=== PATIENT | female | born 1955 | race Caucasian/White ===

== ENCOUNTER 2016-11-14 16:34 | Observation (INO) | payer OTHER ==
[~2016-11-14] VITALS: Ht 152.4 cm; Wt 66.0 kg
[2016-11-14 16:35] VITALS: BP 186/85; PULSE 88; RESP 20; TEMP 97.7; O2SAT 96
--- NOTE | 2016-11-14 16:54 | PD ---
HPI Chief Complaint: Laceration/Skin Injury Time Seen by Provider: 16:53 Travel History International Travel<30 days: No Contact w/Intl Traveler<30days: No Traveled to known affect area: No History of Present Illness HPI 61-year-old female presents to the emergency department after 2 large pots fell from approximately 3 feet and hit her in the head. She is a [employer] employee and was at work at the time. Denies loss of consciousness. Reports headache, lightheadedness, dizziness. Reports blurred vision. Denies neck pain. Denies anticoagulants. Denies vomiting. Denies focal deficits or weakness. No change in gait. Denies confusion, disorientation, change in mentation, slurred speech. Has not taken any medications or tried any treatments to alleviate her symptoms. She does have a laceration to the midline frontal scalp which pressure has been applied and bleeding is controlled. Thinks her tetanus was updated about 7 years ago. No known allergies. No other medical complaints. No other modified factors or associated signs and symptoms. [facility] Social History Tobacco Use: No Allergies-Medications (Allergen,Severity, Reaction): Coded Allergies: No Known Allergies (Unverified , 11/14/16) Reported Meds & Prescriptions Reported Meds & Active Scripts Active Active Prescriptions or Reported Medications Unobtainable Review of Systems Except as stated in HPI: all other systems reviewed are Neg Physical Exam Narrative GENERAL: Well-nourished, well-developed female patient, in no acute distress SKIN: Warm and dry. Laceration noted to midfrontal scalp. Swelling noted to left forehead just above the left eye. HEAD: Atraumatic. Normocephalic. Facial droop noted. Tongue midline. EYES: Pupils equal and round at 3 mm with brisk reaction. No scleral icterus. No injection or drainage. PERRLA. EOMI. Left upper orbit with tenderness on palpation. No raccoon eyes. ENT: Mucosa pink and moist. Airway patent. EARS: Bilateral pinnae and external canals appear within normal limits. Bilateral tympanic membranes without hemotympanum, erythema, dullness or perforation. NECK: Trachea midline. No lymphadenopathy. CARDIOVASCULAR: Regular rate and rhythm. No murmur appreciated. RESPIRATORY: No accessory muscle use. Clear to auscultation. Breath sounds equal bilaterally. GASTROINTESTINAL: Abdomen soft, non-tender, nondistended. Hepatic and splenic margins not palpable. Bowel sounds are active 4 quadrants. MUSCULOSKELETAL: No obvious deformities. No clubbing. No cyanosis. No edema. NEUROLOGICAL: Awake and alert. Oriented 3. No obvious cranial nerve deficits. Motor grossly within normal limits. Normal speech. Moves all extremities. 5/5 strength to all extremities. PSYCHIATRIC: Appropriate mood and affect; insight and judgment normal. Data Data Last Documented VS Vital Signs Date Time Temp Pulse Resp B/P Pulse Ox O2 Delivery O2 Flow Rate FiO2 11/14/16 18:33 16 99 Room Air 11/14/16 18:26 68 132/66 11/14/16 16:[address] Facial Bones W/O Iv Cont (11/14/16 ) Ct Brain W/O Iv Contrast(Rout) (11/14/16 ) Tetanus/Diphtheria Tox Adult (Tetanus/Di (11/14/16 17:00) Morphine Inj (Morphine Inj) (11/14/16 17:00) Ondansetron Odt (Zofran Odt) (11/14/16 17:00) Lidocai-Epi 1%-1:100,000 Inj (Xylocaine- (11/14/16 17:45) Ct Cerv Spine W/O Contrast (11/14/16 ) Complete Blood Count With Diff (11/14/16 18:29) Basic Metabolic Panel (Bmp) (11/14/16 18:29) Iv Access Insert/Monitor (11/14/16 18:29) Blood Glucose (11/14/16 18:29) Ecg Monitoring (11/14/16 18:29) Oximetry (11/14/16 18:29) Sodium Chloride 0.9% Flush (Ns Flush) (11/14/16 18:30) Admit Order (Ed Use Only) (11/14/16 18:39) Labs Laboratory Tests Test 11/14/16 18:38 White Blood Count 7.6 TH/MM3 Red Blood Count 4.64 MIL/MM3 Hemoglobin 12.6 GM/DL Hematocrit 39.1 % Mean Corpuscular Volume 84.4 FL Mean Corpuscular Hemoglobin 27.1 PG Mean Corpuscular Hemoglobin 32.2 % Concent Red Cell Distribution Width 13.5 % Platelet Count 221 TH/MM3 Mean Platelet Volume 9.1 FL Neutrophils (%) (Auto) 58.4 % Lymphocytes (%) (Auto) 31.4 % Monocytes (%) (Auto) 5.1 % Eosinophils (%) (Auto) 3.9 % Basophils (%) (Auto) 1.2 % Neutrophils # (Auto) 4.4 TH/MM3 Lymphocytes # (Auto) 2.4 TH/MM3 Monocytes # (Auto) 0.4 TH/MM3 Eosinophils # (Auto) 0.3 TH/MM3 Basophils # (Auto) 0.1 TH/MM3 CBC Comment DIFF FINAL Differential Comment Sodium Level 140 MEQ/L Potassium Level 3.9 MEQ/L Chloride Level 104 MEQ/L Carbon Dioxide Level 28.6 MEQ/L Anion Gap 7 MEQ/L Blood Urea Nitrogen 17 MG/DL Creatinine 0.66 MG/DL Estimat Glomerular Filtration 91 ML/MIN Rate Random Glucose 86 MG/DL Calcium Level 9.1 MG/DL MDM Medical Decision Making Medical Screen Exam Complete: Yes Emergency Medical Condition: Yes Medical Record Reviewed: Yes Differential Diagnosis Head injury, facial contusion, scalp laceration Narrative Course 61-year-old female presents after 2 large pots fell from approximately 3 feet and hit the patient in the head twice. She is a [employer] employee and the injury occurred while at work. She has a laceration to the frontal mid scalp. Patient is complaining of dizziness, lightheadedness, headache, blurred vision. Neuro exam is unremarkable. PERRLA and EOMI. Alert and oriented without slurred speech. CT head and CT facial bones ordered. Tetanus updated in the ER. Dr. Jiménez, my attending physician, ordered morphine. Zofran ordered. 180: Patient is continuing to feel lightheaded, dizzy and just "doesn't feel right." She is diaphoretic. She became very dizzy on transfer from wheelchair to bed after CT scan. Patient will be moved to medical bed, placed on a cardiopulmonary monitor and monitored more closely. Report given to YULISSA Maguire. See her note for final disposition and laceration repair. Scripts Unable to Obtain Active Prescriptions or Reported Meds Ana Inman Nov 14, 2016 16:54
[2016-11-14] MEDS ORDERED: ONDANSETRON ODT 4 MG TAB PO ONE (17:00)
[2016-11-14] MEDS ORDERED: MORPHINE SULFATE 8 MG/ML INJ IM ONE (17:00)
[2016-11-14] MEDS ORDERED: TETANUS/DIPHTHERIA TOXOID ADULT 0.5 ML VIAL IM ONE (17:00)
[2016-11-14] MEDS ORDERED: LIDOCAINE 1%/EPINEPHrine 1:100,000 SOLN 20 ML VIAL INFIL ONE (17:45)
--- NOTE | 2016-11-14 17:55 | RADRPT ---
EXAM DATE/TIME: 11/14/2016 17:43 [facility] COMPARISON: No previous studies available for comparison. INDICATIONS : Fell three feet and hit head. RADIATION DOSE: 31.74 CTDIvol (mGy) MEDICAL HISTORY : Hypertension. SURGICAL HISTORY : None. ENCOUNTER: Initial ACUITY: 1 day PAIN SCALE: 10/10 LOCATION: cranial TECHNIQUE: Multiple contiguous axial images were obtained of the head. Using automated exposure control and adj ustment of the mA and/or kV according to patient size, radiation dose was kept as low as reasonably a chievable to obtain optimal diagnostic quality images. FINDINGS: CEREBRUM: The ventricles are normal for age. No evidence of midline shift, mass lesion, hemorrhage or acute in farction. No extra-axial fluid collections are seen. POSTERIOR FOSSA: The cerebellum and brainstem are intact. The 4th ventricle is midline. The cerebellopontine angle i s unremarkable. EXTRACRANIAL: The visualized portion of the orbits is intact. SKULL: The calvaria is intact. No evidence of skull fracture. CONCLUSION: 1. No evidence of acute intracranial pathology. No masses are identified. Lupillo Soto MD on November 14, 2016 at 17:53 Board Certified Radiologist. This report was verified electronically.
--- NOTE | 2016-11-14 18:12 | RADRPT ---
EXAM DATE/TIME: 11/14/2016 17:43 [facility] COMPARISON: No previous studies available for comparison. INDICATIONS : Fell three feet and hit head. RADIATION DOSE: 51.12 CTDIvol (mGy) MEDICAL HISTORY : Hypertension. SURGICAL HISTORY : None. ENCOUNTER: Initial ACUITY: 1 day PAIN SCORE: 10/10 LOCATION: facial TECHNIQUE: Volumetric scanning of the facial bones was performed. Using automated exposure control and adjustme nt of the mA and/or kV according to patient size, radiation dose was kept as low as reasonably achiev able to obtain optimal diagnostic quality images. FINDINGS: No definite fractures, dislocations, lytic, or sclerotic lesions are seen. There is slight scalp swel ling in the left frontal lobe and mild mucoperiosteal thickening of the left eithmoid air cells. CONCLUSION: No definite fracture is seen for techniqueoYgesh Bansal MD on November 14, 2016 at 18:07 Board Certified Radiologist. This report was verified electronically.
[2016-11-14 18:26] VITALS: BP 132/66; PULSE 68; RESP 16; O2SAT 99
[2016-11-14] MEDS ORDERED: SODIUM CHLORIDE 0.9% FLUSH 10 ML FLUSH IVF PRN (18:30)
[2016-11-14 18:33] VITALS: RESP 16; O2SAT 99
[2016-11-14] MEDS ORDERED: ACETAMINOPHEN 325 MG TAB PO PRN ×2 (19:00→23:15)
[2016-11-14] MEDS ORDERED: SODIUM CHLORIDE 0.9% FLUSH 10 ML FLUSH IV FLUSH PRN (19:00)
[2016-11-14] MEDS ORDERED: NALOXONE HCL 0.4 MG/ML AMP IV PRN (19:00)
[2016-11-14] MEDS ORDERED: ONDANSETRON HCL 4 MG/2 ML VIAL IVP PRN (19:00)
--- NOTE | 2016-11-14 19:05 | PD ---
Physical Exam Date Seen by Provider: Nov 14, 2016 Time Seen by Provider: 18:20 Narrative For full history and physical examination please see previous provider's note. I assumed care of this patient when she was transferred to a medical bed. Patient sustained a head injury while at work, she has been diaphoretic, dizzy with a dull headache. Data Data Last Documented VS Vital Signs Date Time Temp Pulse Resp B/P Pulse Ox O2 Delivery O2 Flow Rate FiO2 11/14/16 18:33 16 99 Room Air 11/14/16 18:26 68 132/66 11/14/16 16:[address] Facial Bones W/O Iv Cont (11/14/16 ) Ct Brain W/O Iv Contrast(Rout) (11/14/16 ) Tetanus/Diphtheria Tox Adult (Tetanus/Di (11/14/16 17:00) Morphine Inj (Morphine Inj) (11/14/16 17:00) Ondansetron Odt (Zofran Odt) (11/14/16 17:00) Lidocai-Epi 1%-1:100,000 Inj (Xylocaine- (11/14/16 17:45) Ct Cerv Spine W/O Contrast (11/14/16 ) Complete Blood Count With Diff (11/14/16 18:29) Basic Metabolic Panel (Bmp) (11/14/16 18:29) Iv Access Insert/Monitor (11/14/16 18:29) Blood Glucose (11/14/16 18:29) Ecg Monitoring (11/14/16 18:29) Oximetry (11/14/16 18:29) Sodium Chloride 0.9% Flush (Ns Flush) (11/14/16 18:30) Admit Order (Ed Use Only) (11/14/16 18:39) Labs Laboratory Tests Test 11/14/16 18:38 White Blood Count 7.6 TH/MM3 Red Blood Count 4.64 MIL/MM3 Hemoglobin 12.6 GM/DL Hematocrit 39.1 % Mean Corpuscular Volume 84.4 FL Mean Corpuscular Hemoglobin 27.1 PG Mean Corpuscular Hemoglobin 32.2 % Concent Red Cell Distribution Width 13.5 % Platelet Count 221 TH/MM3 Mean Platelet Volume 9.1 FL Neutrophils (%) (Auto) 58.4 % Lymphocytes (%) (Auto) 31.4 % Monocytes (%) (Auto) 5.1 % Eosinophils (%) (Auto) 3.9 % Basophils (%) (Auto) 1.2 % Neutrophils # (Auto) 4.4 TH/MM3 Lymphocytes # (Auto) 2.4 TH/MM3 Monocytes # (Auto) 0.4 TH/MM3 Eosinophils # (Auto) 0.3 TH/MM3 Basophils # (Auto) 0.1 TH/MM3 CBC Comment DIFF FINAL Differential Comment Sodium Level 140 MEQ/L Potassium Level 3.9 MEQ/L Chloride Level 104 MEQ/L Carbon Dioxide Level 28.6 MEQ/L Anion Gap 7 MEQ/L Blood Urea Nitrogen 17 MG/DL Creatinine 0.66 MG/DL Estimat Glomerular Filtration 91 ML/MIN Rate Random Glucose 86 MG/DL Calcium Level 9.1 MG/DL [facility] Medical Record Reviewed: Yes Supervised Visit with KAYLEY: No Interpretation(s) Vital Signs Date Time Temp Pulse Resp B/P Pulse Ox O2 Delivery O2 Flow Rate FiO2 11/14/16 18:33 16 99 Room Air 11/14/16 18:26 68 16 132/66 99 Room Air 11/14/16 18:00 17 11/14/16 16:35 97.7 88 20 186/85 96 Room Air Differential Diagnosis Concussion versus hemorrhage versus laceration versus abrasion versus fracture versus other Narrative Course Patient is 61-year-old female transferred from fast track to medical bed due to asymptomatic concussion. Patient had 2 large metal pot fall on her head at work today. Tetanus vaccine was updated. CT scan of the head and facial bones are negative for acute fracture. Please see procedure report for laceration repair. Due to patient being symptomatic, she will be kept under observation at this time. Discussed with Dr. Sue who accepted admission. Patient is agreeable to stay. Additionally a CT scan of the cervical spine was ordered and is pending due to the weight and size of the pots that fell onto her head. CT scan of cervical spine is negative for acute abnormality. Procedures Procedure Narrative LACERATION LOCATION: Anterior scalp LENGTH: 1.5 cm NUMBER OF STITCHES/PAU: 2 pau REPAIR: The area of the laceration was prepped with Betadine and sterilely draped. The laceration was infiltrated with 1% lidocaine. The wound was copiously irrigated and explored without evidence of foreign body, tendon injury or neurovascular injury. The wound was closed using pau. This was a 1 layer repair. A sterile dressing was applied. The patient was advised to keep the dressing clean and dry. Patient tolerated the procedure well. Diagnosis Primary Impression: Concussion Qualified Code: S06.0X0A - Concussion, without LOC, initial encounter Admitting Information Admitting Physician Requests: Observation Scripts Unable to Obtain Active Prescriptions or Reported Meds Condition: Renetta Kang [facility] Nov 14, 2016 19:05
[2016-11-14] MEDS: SODIUM CHLOR 0.9% 1000 ML INJ 1,000 ML IV SCH (19:15)
[2016-11-14 19:16] LABS: AUTOMATED NEUTROPHIL # 4.4 TH/MM3 (1.8-7.7); BASOPHIL # 0.1 TH/MM3 (0-0.2); BASOPHIL % 1.2 % (0.0-2.0); EOSINOPHIL # 0.3 TH/MM3 (0-0.4); EOSINOPHIL % 3.9 % (0.0-4.0); HEMATOCRIT 39.1 % (35.0-46.0); HEMO FLAGS DIFF FINAL; LYMPH % 31.4 % (9.0-44.0); LYMPHOCYTE # 2.4 TH/MM3 (1.0-4.8); MEAN CELL VOLUME 84.4 FL (80.0-100.0); MEAN CORPUSCULAR HEMOGLOBIN 27.1 PG (27.0-34.0); MEAN CORPUSCULAR HGB CONC 32.2 % (32.0-36.0); MONO % 5.1 % (0.0-8.0); NEUT % 58.4 % (16.0-70.0); PLATELET COUNT 221 TH/MM3 (150-450); RED BLOOD COUNT 4.64 MIL/MM3 (4.00-5.30); RED CELL DISTRIBUTION WIDTH 13.5 % (11.6-17.2); WHITE BLOOD COUNT 7.6 TH/MM3 (4.0-11.0)
[2016-11-14 19:40] LABS: BICARBONATE 28.6 MEQ/L (21.0-32.0); POTASSIUM 3.9 MEQ/L (3.5-5.1)
--- NOTE | 2016-11-14 19:51 | RADRPT ---
EXAM DATE/TIME: 11/14/2016 19:22 [facility] COMPARISON: No previous studies available for comparison. INDICATIONS : Fell hit top of head. RADIATION DOSE: 30.91 CTDIvol (mGy) MEDICAL HISTORY : Hypertension. SURGICAL HISTORY : None. ENCOUNTER: Initial ACUITY: 1 day PAIN SCALE: 7/10 LOCATION: neck TECHNIQUE: Volumetric scanning of the cervical spine was performed. Multiplanar reconstructions in the sagittal, coronal and oblique axial planes were performed. Using automated exposure control and adjustment o f the mA and/or kV according to patient size, radiation dose was kept as low as reasonably achievable to obtain optimal diagnostic quality images. FINDINGS: No evidence of subluxation. No definite fracture is seen for technique. C2-C3: There is no evidence for any significant compromise to the thecal sac, or the exiting nerve roots. N o appreciable thecal sac stenosis is seen. The neural foramina and lateral recess appear patent bila terally. C3-C4: Slight bulging disc and hypertrophic changes are seen with indentation on the thecal sac and no signi ficant compromise to the thecal sac or the exiting nerve roots. C4-C5: Slight bulging disc and hypertrophic changes are seen with indentation on the thecal sac and no signi ficant compromise to the thecal sac or the exiting nerve roots. Slight degenerative changes are seen within the disc space and facets. C5-C6: Slight degenerative changes are seen within the disc space and facets. Slight bulging disc and hypert rophic changes are seen with indentation on the thecal sac and no significant compromise to the theca l sac or the exiting nerve roots. C6-C7: There is no evidence for any significant compromise to the thecal sac, or the exiting nerve roots. N o appreciable thecal sac stenosis is seen. The neural foramina and lateral recess appear patent bila terally. C7-T1: There is no evidence for any significant compromise to the thecal sac, or the exiting nerve roots. N o appreciable thecal sac stenosis is seen. The neural foramina and lateral recess appear patent bila terally. CONCLUSION: Slight degenerative spondylosis without any significant compromise to the thecal sac or the exiting n erve roots. Ignacia Bansal MD on November 14, 2016 at 19:44 Board Certified Radiologist. This report was verified electronically.
[2016-11-14 20:50] VITALS: BP 148/75; PULSE 64; RESP 18; TEMP 97.8; O2SAT 96
[2016-11-14] MEDS: SODIUM CHLORIDE 0.9% FLUSH 10 ML FLUSH IV FLUSH SCH (21:00)
[2016-11-14] MEDS ORDERED: ACETAMINOPHEN/HYDROcodone 325 MG/5 MG TAB PO PRN (23:15)
[2016-11-15] MEDS: SODIUM CHLOR 0.9% 1000 ML INJ 1,000 ML IV SCH (04:48)
[2016-11-15 06:01] VITALS: BP 130/68; PULSE 85; RESP 18; TEMP 97.9; O2SAT 97
[2016-11-15] MEDS: SODIUM CHLORIDE 0.9% FLUSH 10 ML FLUSH IV FLUSH SCH (07:34)
--- NOTE | 2016-11-15 07:40 | HHI.HP ---
[facility] Jeff Webster MD, PhD Admission Diagnosis CONCUSSION Diagnoses: Chief Complaint: headache, neck pain Travel History International Travel<30 Days: No Contact w/Intl Traveler <30 Da: No Traveled to Known Affected Are: No History of Present Illness This a 61-year-old female who is generally in good health, past medical history of hypertension. She presented to the emergency room after 2 large metal cooking pots fell on her head from approximately 3 feet. 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 Patient did not lose consciousness, she reported headache, lightheadedness and dizziness. Initially reported perturbation which is now resolved. Denied any neck pain. No nausea, no vomiting. Denies any vision changes. She did have a laceration to the midline frontal scalp. In the emergency room, patient was evaluated. CT of the head and neck were negative for any acute findings. Her laceration was stapled. Patient had increased lightheadedness and dizziness as well as diaphoresis when transferring from wheelchair to bed after CT therefore request was made to admit overnight for observation. Patient is now evaluated, she is only complaining of headache and mild neck pain. Denies any vision changes, no neuro deficits noted. She has been able to get up to the commode with minimal dizziness. Patient is admitted for further evaluation and treatment. Review of Systems Constitutional: COMPLAINS OF: Dizziness, DENIES: Diaphoretic episodes, Fatigue , Fever, Weight gain, Weight loss, Chills, Change in appetite, Night Sweats Endocrine: DENIES: Abnorml menstrual pattern, Heat/cold intolerance, Polydipsia , Polyuria, Polyphagia Eyes: DENIES: Blurred vision, Diplopia, Eye inflammation, Eye pain, Vision loss , Photosensitivity, Double Vision Ears, nose, mouth, throat: DENIES: Tinnitus, Hearing loss, Vertigo, Nasal discharge, Oral lesions, Throat pain, Hoarseness, Ear Pain, Running Nose, Epistaxis, Sinus Pain, Toothache, Odynophagia Respiratory: DENIES: Apneas, Cough, Snoring, Wheezing, Hemoptysis, Sputum production, Shortness of breath Cardiovascular: DENIES: Chest pain, Palpitations, Syncope, Dyspnea on Exertion , PND, Lower Extremity Edema, Orthopnea, Claudication Gastrointestinal: DENIES: Abdominal pain, Black stools, Bloody stools, Constipation, Diarrhea, Nausea, Vomiting, Difficulty Swallowing, Anorexia Musculoskeletal: COMPLAINS OF: Neck pain, DENIES: Joint pain, Muscle aches, Stiffness, Joint Swelling, Back pain Integumentary: DENIES: Abnormal pigmentation, Pruritus, Rash, Nail changes, Breast masses, Breast skin changes, Nipple discharge Hematologic/lymphatic: DENIES: Bruising, Lymphadenopathy Immunologic/allergic: DENIES: Eczema, Urticaria Neurologic: COMPLAINS OF: Headache, DENIES: Abnormal gait, Localized weakness , Paresthesias, Seizures, Speech Problems, Tremor, Poor Balance Psychiatric: DENIES: Anxiety, Confusion, Mood changes, Depression, Hallucinations, Agitation, Suicidal Ideation, Homicidal Ideation, Delusions Past Family Social History Past Medical History HTN Reported Medications Reported Meds & Active Scripts Active Active Prescriptions or Reported Medications Unobtainable Allergies: Coded Allergies: No Known Allergies (Unverified , 11/14/16) Active Ordered Medications Inpatient Medications Acetaminophen (Tylenol) 650 mg Q4H PRN PO MILD PAIN Last administered on 07:34; Start 11/14/16 at 23:15 Acetaminophen/ Hydrocodone Bitart ([place] 5-325 Mg) 1 tab Q4H PRN PO MODERATE - SEVERE PAIN Last administered on 11/14/16 23:09; Start 11/14/16 at 23:15 Lidocaine/ Epinephrine (Xylocaine-Epi 1%-1:100,000 Inj) 10 ml ONCE ONCE INFIL Last administered on 11/14/16 17:45; Start 11/14/16 at 17:45; Stop 11/14/16 at 17:49; Status DC Morphine Sulfate (Morphine Inj) 6 mg ONCE ONCE IM Last administered on 17:08; Start 11/14/16 at 17:00; Stop 11/14/16 at 17:01; Status DC Naloxone HCl (Narcan Inj) 0.4 mg UNSCH PRN IV SEE LABEL COMMENTS; Start at 19:00 Ondansetron HCl (Zofran Odt) 4 mg ONCE ONCE PO Last administered on 17:10; Start 11/14/16 at 17:00; Stop 11/14/16 at 17:01; Status DC Ondansetron HCl (Zofran Inj) 4 mg Q6H PRN IVP NAUSEA OR VOMITING; Start at 19:00 Sodium Chloride (NS 1000 ml Inj) 1,000 ml @ 100 mls/hr Q10H IV Last administered on 11/15/16 04:48; Start 11/14/16 at 18:57 Sodium Chloride (NS Flush) 2 ml BID IV FLUSH ; Start 11/14/16 at 21:00 Sodium Chloride 2 ml 2 ml UNSCH PRN IVF FLUSH AFTER USING IV ACCESS; Start at 18:30; Stop 11/14/16 at 19:12; Status DC Tetanus/ Diphtheria Toxoids (Tetanus/ Diphtheria Tox Adult) 0.5 ml ONCE ONCE IM Last administered on 11/14/16 17:10; Start 11/14/16 at 17:00; Stop 11/14/16 at 17:01; Status DC Family History Mother from stroke Father from complications of CAD Social History , has 2 kids. Non smoker, no ETOH, no substance abuse. Works as a cook at [email or web address] Physical Exam Vital Signs Vital Signs Date Time Temp Pulse Resp B/P Pulse Ox O2 Delivery O2 Flow Rate FiO2 11/15/16 06:01 97.9 85 18 130/68 97 11/14/16 20:50 97.8 64 18 148/75 96 11/14/16 18:33 16 99 Room Air 11/14/16 18:26 68 16 132/66 99 Room Air 11/14/16 18:00 17 11/14/16 16:35 97.7 88 20 186/85 96 Room Air Physical Exam GENERAL: This is a well-nourished, well-developed patient, in no apparent distress. SKIN: No rashes, ecchymoses or lesions. Cool and dry. HEAD: Laceration with pau to midfrontal scalp. Normocephalic. No temporal or scalp tenderness. EYES: Pupils equal round and reactive. Extraocular motions intact. No scleral icterus. No injection or drainage. ENT: Nose without bleeding, purulent drainage or septal hematoma. Throat without erythema, tonsillar hypertrophy or exudate. Uvula midline. Airway patent. NECK: Trachea midline. No JVD or lymphadenopathy. Supple, nontender, no meningeal signs. CARDIOVASCULAR: Regular rate and rhythm without murmurs, gallops, or rubs. RESPIRATORY: Clear to auscultation. Breath sounds equal bilaterally. No wheezes , rales, or rhonchi. GASTROINTESTINAL: Abdomen soft, non-tender, nondistended. No hepato-splenomegaly , or palpable masses. No guarding. MUSCULOSKELETAL: Extremities without clubbing, cyanosis, or edema. No joint tenderness, effusion, or edema noted. No calf tenderness. Negative Homans sign bilaterally. NEUROLOGICAL: Awake and alert. Cranial nerves II through XII intact. Motor and sensory grossly within normal limits. Five out of 5 muscle strength in all muscle groups. Normal speech. Laboratory Laboratory Tests Test 11/14/16 18:38 White Blood Count 7.6 Red Blood Count 4.64 Hemoglobin 12.6 Hematocrit 39.1 Mean Corpuscular Volume 84.4 Mean Corpuscular Hemoglobin 27.1 Mean Corpuscular Hemoglobin 32.2 Concent Red Cell Distribution Width 13.5 Platelet Count 221 Mean Platelet Volume 9.1 Neutrophils (%) (Auto) 58.4 Lymphocytes (%) (Auto) 31.4 Monocytes (%) (Auto) 5.1 Eosinophils (%) (Auto) 3.9 Basophils (%) (Auto) 1.2 Neutrophils # (Auto) 4.4 Lymphocytes # (Auto) 2.4 Monocytes # (Auto) 0.4 Eosinophils # (Auto) 0.3 Basophils # (Auto) 0.1 CBC Comment DIFF FINAL Differential Comment Sodium Level 140 Potassium Level 3.9 Chloride Level 104 Carbon Dioxide Level 28.6 Anion Gap 7 Blood Urea Nitrogen 17 Creatinine 0.66 Estimat Glomerular Filtration 91 Rate Random Glucose 86 Calcium Level 9.1 Result Diagram: 11/14/168 11/14/16 1838 Imaging Last Impressions Maxillofacial CT 11/14/16 0000 Signed Impressions: Service Date/Time: October 17:43 - CONCLUSION: No definite fracture is seen for technique. Ignacia Bansal MD Head CT 11/14/16 0000 Signed Impressions: Service Date/Time: October 17:43 - CONCLUSION: 1. No evidence of acute intracranial pathology. No masses are identified. Lupillo Soto MD Cervical Spine CT 11/14/16 0000 Signed Impressions: Service Date/Time: October 19:22 - CONCLUSION: Slight degenerative spondylosis without any significant compromise to the thecal sac or the exiting nerve roots. Ignacia Bansal MD Assessment and Plan Problem List: (1) Concussion (2) HTN (hypertension) Assessment and Plan Admit to Dr. Sue 61 year old female presented to ED after 2 metal cooking pots fell on her head causing a laceration. Complained of headache, dizziness. CT head and cervical negative. Admitted for obs for concussion with laceration -neuro checks q 4 -continue with hydration -OOB with assist, instructed not to make sudden body position changes -continue with Tylenol PRN headache -Laceration has been stable, monitor wound. She can return to hospital in 10 days to have pau removed Hypertension, blood pressure initially elevated now stable. Patient unable to recall name of medication Clonidine as needed for elevated blood pressure systolic greater than 160, diastolic greater than 90 SCDs for DVT prophylaxis Plan of care has been discussed with the patient, attending and registered nurse. Further management of the patient will be dependent on the hospital course We will have the nurse assist patient out of bed to ambulate and see how she feels, if she is able to tolerate activity, she will likely be discharged this afternoon. She can return to work on Friday She has been advised to return to hospital if she develops severe headache, seizures, changes in vision. This patient was seen by myself and Dr. Sue, this H&P is written on his behalf Problem Qualifiers (1) Concussion: Qualified Code: S06.0X0A - Concussion, without LOC, initial encounter (2) HTN (hypertension): Qualified Code: I10 - Essential hypertension Chantelle Mayo Nov 15, 2016 07:40
--- NOTE | 2016-11-15 07:41 | HHI.DCPOC ---
Discharge Care Plan Diagnosis: (1) Concussion Your Health Problems Are: Anxiety Difficulty with ADL Inflammation Swelling Goals to Promote Your Health * To prevent worsening of your condition and complications * To maintain your health at the optimal level Directions to Meet Your Goals Take your medications as prescribed Follow your dietary instruction Follow activity as directed Keep your appointments as scheduled Take your immunizations and boosters as scheduled If your symptoms worsen call your PCP, if no PCP go to Urgent Care Center or Emergency Room Smoking is Dangerous to Your Health. Avoid second hand smoke Call the 24-hour hour crisis hotline for domestic abuse at Chantelle Mayo. [facility] Nov 15, 2016 07:41
[2016-11-15 07:59] VITALS: BP 114/61; PULSE 54; RESP 16; TEMP 97.6; O2SAT 95
[2016-11-15] MEDS ORDERED: cloNIDine HCL 0.1 MG TAB PO PRN (09:00)
[2016-11-15] MEDS ORDERED: HYDR-3516 PO (11:37)
[2016-11-15 11:48] VITALS: BP 103/55; PULSE 66; RESP 16; TEMP 97.9; O2SAT 95
[2017-01-09] MEDS ORDERED: LISI20TA PO ×2 (08:32→08:59)
[2017-01-09] MEDS ORDERED: CITA20TA4 PO ×2 (08:32→08:59)
[2017-01-09] MEDS ORDERED: IBUP800T23 PO ×2 (08:32→08:59)
[2017-01-09] MEDS ORDERED: AMLO2.5T PO ×2 (08:32→08:59)
== END 2016-11-15 13:13 | disposition home or self-care (01) ==
LOC: NEPD 16:34 → NEDA 18:40 → NEPGCP 20:42
PROVIDERS: ADMIT Specialist; ATTEND Specialist
DX: S01.01XA Laceration without foreign body of scalp, initial encounter (principal); S06.0X0A Concussion without loss of consciousness, initial encounter; I10 Essential (primary) hypertension; W20.8XXA Other cause of strike by thrown, projected or falling object, initial encounter
CPT/HCPCS: 12001; 70450; 70486; 72125; 80048; 85025; 90471; 90714; 96374; 99284; G0378; J2270; J7030